=== PATIENT | male | born 1960 | race Hispanic/Latino ===

== ENCOUNTER 2019-08-31 17:54 | Emergency (ER) | payer OTHER ==
[2019-08-31 19:24] LABS: Absolute Lymphocytes (CBC) 2.1 K/uL (0.7-4.9); Basophils % 0.4 % (0-1.3); Hematocrit 39.7 % (39.6-49.0); RBC Red Blood Cell Count 4.47 M/uL (4.33-5.43)
--- NOTE | 2019-08-31 19:31 | RAD REPORT ---
EXAM DESCRIPTION: RAD - Knee Left 3 View - 08/31/2019 7:14 pm CLINICAL HISTORY: pain, swelling COMPARISON: No comparisons FINDINGS: Tricompartmental osteoarthritis is seen, most severe in the lateral compartment. No fractu re is evident. Small suprapatellar joint effusion is evident. Soft tissue edema is seen about the kne e.
[2019-08-31 19:40] LABS: Bilirubin Total 0.8 mg/dL (0.2-1.0); Potassium 4.1 mmol/L (3.5-5.1); Protein, Total 7.8 g/dL (6.4-8.2); Uric Acid 4.5 mg/dL (3.5-7.2)
[2019-08-31] MEDS ORDERED: LIDOCAINE 1% MPF 5 ML VIAL ONE (20:26)
[2019-08-31 22:06] LABS: Appearance SLT. TURBID (CLEAR); Body Fluid WBC 55 /mm^3; Color of fluid Yellow (COLORLESS)
[2019-08-31 22:07] LABS: Body Fluid Source SYNOVIAL
--- NOTE | 2019-08-31 23:23 | EDPHYS ---
Physician Documentation [facility] Name: Juarez Almonte Jr Age: 59 yrs Sex: Male : 1960 Arrival Date: 08/31/2019 Time: 17:56 Bed 6 Private MD: Myke Keller ED Physician Andrey Oconnell HPI: 08/30 18:42 This 59 yrs old Male presents to ER via Wheelchair with complaints of Leg jmm Swelling, Knee Pain. 18:42 The patient presents with pain. Onset: The symptoms/episode began/occurred gradually, 1 jmm week(s) ago. Modifying factors: The symptoms are alleviated by extending knee. Associated signs and symptoms: Pertinent positives: swelling, warmth, Pertinent negatives fever. This is a 59 year old male with a history of DM that presents to the ED with complaints of left knee pain. Patient states the symptoms began when he awoke 1 week ago. Pain is localized mainly to the right anterior medial region. Sent by PCP due to concerns for joint infection. . Historical: - Allergies: 18:24 No Known Allergies; ll1 - PSHx: 18:24 None; ll1 - Immunization history:: Adult Immunizations up to date. - Social history:: Patient/guardian denies using alcohol, street drugs, tobacco products. ROS: 18:42 Constitutional: Negative for fever, chills, and weight loss, Cardiovascular: Negative jmm for chest pain, palpitations, and edema, Respiratory: Negative for shortness of breath, cough, wheezing, and pleuritic chest pain. 18:42 MS/extremity: Positive for erythema, pain. 18:42 All other systems are negative. Exam: 18:42 Constitutional: This is a well developed, well nourished patient who is awake, alert, jmm and in no acute distress. Head/Face: atraumatic. Eyes: EOMI, no conjunctival erythema appreciated ENT: Moist Mucus Membranes Neck: Trachea midline, Supple Chest/axilla: Normal chest wall appearance and motion. Cardiovascular: Regular rate and rhythm. No edema appreciated Respiratory: Normal respirations, no respiratory distress appreciated Abdomen/GI: Non distended, soft Back: Normal ROM 18:42 Musculoskeletal/extremity: Painful flexion noted to the left knee, pain relieved on extension. 18:42 Skin: erythema noted to the left ant knee, . 18:42 Neuro: Orientation: is normal, Mentation: is normal, Memory: is normal, Cranial nerves: 18:42 Psych: Behavior/mood is pleasant, cooperative. Vital Signs: 18:22 BP 127 / 76; Pulse 84; Resp 18; Temp 99.4; Pulse Ox 97% ; Pain 9/10; ll1 20:50 BP 131 / 82; Pulse 78; Resp 16; Pulse Ox 100% on R/A; jb4 22:00 BP 120 / 74; Pulse 75; Resp 16; Pulse Ox 95% on R/A; jb4 23:00 BP 124 / 74; Pulse 75; Resp 16; Pulse Ox 98% on R/A; jb4 Procedures: 20:45 Joint Treatment: Aspiration of left knee using 22g needle. Removed yellow fluid, bloody rn fluid, Specimen sent to lab. Dressed with band aid, Patient tolerated well. MDM: 18:37 Patient medically screened. [facility] 23:20 Data reviewed: vital signs, nurses notes. Counseling: I had a detailed discussion with mansoor the patient and/or guardian regarding: the historical points, exam findings, and any diagnostic results supporting the discharge/admit diagnosis, lab results, radiology results, the need for outpatient follow up, to return to the emergency department if symptoms worsen or persist or if there are any questions or concerns that arise at home. ED course: Patient is alert and non toxic in appearance in the ED. Aspirate fluid unremarkable. Patient most likely has cellulitis. Patient is advised to follow up with pcp and otherwise given strict return precautions Patient understood and agrees with the plan of care. . 08/30 18:42 Order name: CBC with Diff; Complete Time: 19:48 [facility] 08/30 18:42 Order name: CMP; Complete Time: 19:40 [facility] 08/30 18:42 Order name: ESR; Complete Time: 19:48 [facility] 08/30 18:42 Order name: Uric Acid; Complete Time: 19:40 [facility] 08/30 20:44 Order name: Fluid Cell Count,Body; Complete Time: 22:16 08/30 20:44 Order name: Fluid Crystals; Complete Time: 21:21 08/30 18:42 Order name: Knee Left 3 View XRAY; Complete Time: 19:36 [facility] 08/30 18:42 Order name: Saline Lock; Complete Time: 19:30 [facility] 08/30 20:14 Order name: [facility]. Order: Consent for aspiration of the Knee; Complete Time: 20:59 08/30 20:44 Order name: Body Fluid Culture rn Administered Medications: 23:25 Drug: Bactrim (160 mg-800 mg (DS) 1 tablet Route: PO; jb4 23:33 Follow up: Response: No adverse reaction jb4 Disposition: 08/31 17:36 Co-signature as Attending Physician, Andrey Oconnell MD I agree with the assessment and kdr plan of care. Disposition: 08/31/19 23:22 Discharged to Home. Impression: Cellulitis of left lower limb. - Condition is Stable. - Discharge Instructions: Cellulitis, Adult. - Prescriptions for Bactrim DS 800- 160 mg Oral Tablet - take 1 tablet by ORAL route every 12 hours for 10 days; 20 tablet. - Medication Reconciliation Form, Thank You Letter, Antibiotic Education, Prescription Opioid Use form. - Work release form (08/31/19 23:39). jb4 - Follow up: Myke Keller MD; When: 2 - 3 days; Reason: Recheck today's complaints, Continuance of care, Re-evaluation by your physician. Signatures: Dispatcher [employer] EDMS Abhi Walsh RN RN Andrey Oconnell MD MD kdr Mickail, Joel, PA PA [facility] Michael Taveras MD MD rn Bryson, James, RN RN jb4 Akash Richardson RN RN ll1 Corrections: (The following items were deleted from the chart) 08/30 20:59 20:14 [facility]. Order ordered. [facility] jb 23:33 23:22 08/31/2019 23:22 Discharged to Home. Impression: Cellulitis of left lower limb. jb4 Condition is Stable. Forms are Medication Reconciliation Form, Thank You Letter, Antibiotic Education, Prescription Opioid Use. Follow up: Myke Keller; When: 2 - 3 days; Reason: Recheck today's complaints, Continuance of care, Re-evaluation by your physician. [facility]
--- NOTE | 2019-08-31 23:23 | ER ---
Nurse's Notes [facility] Name: Juarez Almonte Jr Age: 59 yrs Sex: Male : 1960 Arrival Date: 08/31/2019 Time: 17:56 Bed 6 Private MD: Myke Keller Diagnosis: Cellulitis of left lower limb Presentation: 08/30 18:22 Chief complaint: Patient states: Left knee pain, redness, swelling for 2 days getting ll1 worse each day. Coronavirus screen: Proceed with normal triage. Patient denies a cough. Patient denies shortness of breath or difficulty breathing. Patient denies measured and/or subjective temperature greater than 100.4F prior to today's visit. Patient denies travel on a cruise ship or to a country the [facility] currently lists as an affected area. Patient denies contact with known and/or suspected case of COVID-19. Ebola Screen: Patient denies travel to an Ebola-affected area in the 21 days before illness onset. Initial Sepsis Screen: Does the patient meet any 2 criteria? No. Patient's initial sepsis screen is negative. Does the patient have a suspected source of infection? No. Patient's initial sepsis screen is negative. Initial Sepsis Screen: Does the patient have a suspected source of infection? Yes: Bone or joint infection. Risk Assessment: Do you want to hurt yourself or someone else? Patient reports no desire to harm self or others. Onset of symptoms was August 30, 2019. 18:22 Method Of Arrival: Wheelchair ll1 18:22 Acuity: DAMION 3 ll1 Historical: - Allergies: 18:24 No Known Allergies; ll1 - PSHx: 18:24 None; ll1 - Immunization history:: Adult Immunizations up to date. - Social history:: Patient/guardian denies using alcohol, street drugs, tobacco products. Screenin:00 Abuse screen: Denies threats or abuse. Denies injuries from another. Nutritional ph screening: No deficits noted. Tuberculosis screening: No symptoms or risk factors identified. Fall Risk None identified. Assessment: 19:05 General: Appears in no apparent distress. comfortable, Behavior is calm, cooperative, jb4 appropriate for age. Pain: Complains of pain in left knee Pain does not radiate. Pain currently is 5 out of 10 on a pain scale. Quality of pain is described as pressure, Pain began 2-3 days ago. Is continuous. Neuro: Level of Consciousness is awake, alert, obeys commands, Oriented to person, place, time, situation. Cardiovascular: Patient's skin is warm and dry. Respiratory: Airway is patent Respiratory effort is even, unlabored, Respiratory pattern is regular, symmetrical. GI: No signs and/or symptoms were reported involving the gastrointestinal system. : No signs and/or symptoms were reported regarding the genitourinary system. EENT: No signs and/or symptoms were reported regarding the EENT system. Derm: Skin is intact, Skin is pink, warm \T\ dry. Musculoskeletal: Circulation, motion, and sensation intact. Range of motion: limited in left knee Swelling present in left knee. 20:00 Reassessment: Patient appears in no apparent distress at this time. Patient and/or jb4 family updated on plan of care and expected duration. Pain level reassessed. Patient is alert, oriented x 3, equal unlabored respirations, skin warm/dry/pink. 20:46 Reassessment: Patient appears in no apparent distress at this time. Patient and/or jb4 family updated on plan of care and expected duration. Pain level reassessed. Patient is alert, oriented x 3, equal unlabored respirations, skin warm/dry/pink. 22:06 Reassessment: Patient appears in no apparent distress at this time. Patient and/or jb4 family updated on plan of care and expected duration. Pain level reassessed. Patient is alert, oriented x 3, equal unlabored respirations, skin warm/dry/pink. 23:00 Reassessment: Patient appears in no apparent distress at this time. Patient and/or jb4 family updated on plan of care and expected duration. Pain level reassessed. Patient is alert, oriented x 3, equal unlabored respirations, skin warm/dry/pink. Vital Signs: 18:22 BP 127 / 76; Pulse 84; Resp 18; Temp 99.4; Pulse Ox 97% ; Pain 9/10; ll1 20:50 BP 131 / 82; Pulse 78; Resp 16; Pulse Ox 100% on R/A; jb4 22:00 BP 120 / 74; Pulse 75; Resp 16; Pulse Ox 95% on R/A; jb4 23:00 BP 124 / 74; Pulse 75; Resp 16; Pulse Ox 98% on R/A; jb4 ED Course: 17:56 Patient arrived in ED. am2 17:57 Myke Keller MD is Private Physician. am2 18:16 Tyree Miller PA is PHCP. m 18:16 Andrey Oconnell MD is Attending Physician. [facility] 18:23 Triage completed. ll1 18:24 Arm band placed on Patient placed in an exam room, on a stretcher. ll1 19:00 Patient has correct armband on for positive identification. Bed in low position. Call ph light in reach. Side rails up X 1. Pulse ox on. NIBP on. Door closed. Noise minimized. Warm blanket given. 19:11 Zeke Frey, RN is Primary Nurse. jb4 19:14 Knee Left 3 View XRAY In Process Unspecified. EDMS 19:15 Inserted saline lock: 20 gauge in right forearm, using aseptic technique. tt3 23:22 Myke Keller MD is Referral Physician. [facility] 23:33 No provider procedures requiring assistance completed. IV discontinued, intact, jb4 bleeding controlled, No redness/swelling at site. Pressure dressing applied. Administered Medications: 23:25 Drug: Bactrim (160 mg-800 mg (DS) 1 tablet Route: PO; jb4 23:33 Follow up: Response: No adverse reaction jb4 Outcome: 23:22 Discharge ordered by . [facility] 23:33 Discharged to home ambulatory. jb4 23:33 Condition: stable 23:33 Discharge instructions given to patient, Instructed on discharge instructions, follow up and referral plans. medication usage, Demonstrated understanding of instructions, follow-up care, medications, Prescriptions given X 1. 23:33 Patient left the ED. jb4 Signatures: Dispatcher [employer] EDMS Tyree Miller PA PA [facility] Tiffany Cabrera RN RN Zeke Frey, RN RN jb4 Mey Malik am2 Akash Richardson, RN RN ll1 Junior Ball tt3
[2019-08-31] MEDS ORDERED: SMZ./TMP. 800/160 MG TABLET ONE (23:30)
[2019-08-31 23:40] VITALS: TEMP 99.4
[2019-08-31 23:44] VITALS: BP 124/74; O2SAT 98
== END 2019-08-31 23:33 | disposition home or self-care (01) ==
LOC: ER 17:54
PROC: 0S9D3ZX Drainage of Left Knee Joint, Percutaneous Approach, Diagnostic (ICD-10-PCS; principal; 2019-08-31)
DX: L03.116 Cellulitis of left lower limb (principal)
CPT/HCPCS: 36415; 80053; 84550; 85025; 85652; 87070; 89050; 89060; 99284

== ENCOUNTER 2020-09-24 11:33 | Inpatient (IN) | payer OTHER ==
--- NOTE | 2020-09-24 12:56 | RAD REPORT ---
EXAM DESCRIPTION: RAD - Chest Single View - 09/24/2020 12:47 pm CLINICAL HISTORY: Cough COMPARISON: None. TECHNIQUE: AP portable chest image was obtained . FINDINGS: Lungs are clear. Heart and vasculature are normal. No measurable pleural effusion and no p neumothorax. No gross bony abnormality seen. IMPRESSION: No acute cardiopulmonary process.
[2020-09-24] MEDS ORDERED: NA CHLORIDE 0.9% 1,000 ML ONE ×2 (13:06→16:43)
[2020-09-24 13:09] LABS: Absolute Lymphocytes (CBC) 1.8 K/uL (0.7-4.9); Basophils % 0.3 % (0-1.3); Hematocrit 39.3 % (39.6-49.0); Lymphocytes % 11.7 % (15.3-44.8); RBC Red Blood Cell Count 4.46 M/uL (4.33-5.43)
[2020-09-24 13:11] LABS: Protime INR 1.15
[2020-09-24 13:27] LABS: ALT/SGPT 56 U/L (12-78); AST/SGOT 23 U/L (15-37); Albumin 3.6 g/dL (3.4-5.0); Alkaline Phosphatase 89 U/L (45-117); BUN Blood Urea Nitrogen 17 mg/dL (7-18); Bicarbonate 24 mmol/L (21-32); Bilirubin Direct 0.5 mg/dL (0-0.2); Bilirubin Total 1.4 mg/dL (0.2-1.0); Glucose Level 217 mg/dL (74-106); Lipase 124 U/L (73-393); Magnesium 2.2 mg/dL (1.8-2.4); NT PRO-BNP 129 pg/mL (<125); Potassium 4.2 mmol/L (3.5-5.1); Protein, Total 7.6 g/dL (6.4-8.2); Sodium Level 127 mmol/L (136-145); Troponin (Emerg Dept Use Only) < 0.02 ng/mL (0.0-0.045)
--- NOTE | 2020-09-24 13:56 | RAD REPORT ---
EXAM DESCRIPTION: CT - Abdomen Pelvis Wo Contrast - 09/24/2020 1:44 pm CLINICAL HISTORY: Abd pain;Flank pain COMPARISON: No comparisons TECHNIQUE: Axial [address] imaging of the abdomen and pelvis was performed without IV contrast. No IV contrast was given because of allergy, abnormal renal function, patient refusal or physician re quest. No oral contrast administered. All CT scans are performed using dose optimization technique as appropriate and may include automated exposure control or mA/KV adjustment according to patient size. FINDINGS: No suspicious findings in the lung bases. The liver, spleen and pancreas show no focal findings on non-contrast imaging. There is pronounced fa tty infiltration of the liver with sparing in the caudate lobe and gallbladder fossa region. No gallb ladder or biliary tree abnormality. No hydronephrosis or suspicious renal mass. No significant adrenal finding. Isodense renal masses an d pyelonephritis cannot be excluded in the absence of IV contrast. Urinary bladder is fully contracte d which accentuates the wall thickness. No accurate assessment can be made of cystitis. No stone or a symmetric wall thickening identified. Prostate gland is normal size. No dilated bowel loops or bowel wall thickening. Appendix is normal. No free air, free fluid or infla mmatory stranding. No mass or bulky lymphadenopathy. No significant hernia findings. No suspicious bony findings. IMPRESSION: Non-contrast enhanced CT abdomen and pelvis imaging show no significant or suspicious fi nding. Nonacute findings detailed in the body of the report. Full assessment is limited is the absence of IV contrast.
[2020-09-24 16:10] LABS: Urine Blood 3+ (Negative); Urine Glucose Trace (Negative); Urine Protein 3+ (Negative); Urine Specific Gravity >=1.030 (1.005-1.030)
--- NOTE | 2020-09-24 16:13 | ER ---
Nurse's Notes [facility] Name: Juarez Almonte Jr Age: 60 yrs Sex: Male : 1960 Arrival Date: 09/24/2020 Time: 11:36 Bed 23 Private MD: Diagnosis: Dysuria;UTI/ Urinary tract infection, site not specified;Hematuria, unspecified;Acute kidney failure, unspecified;Acute prostatitis;Type 2 diabetes mellitus with hyperglycemia;Essential (primary) hypertension;Elevated white blood cell count, unspecified Presentation: 09/24 11:38 Chief complaint: Patient states: hematuria since Wednesday and dysuria. Coronavirus sv screen: Client denies travel out of the [place] in the last 14 days. At this time, the client does not indicate any symptoms associated with coronavirus-19. Ebola Screen: No symptoms or risks identified at this time. Initial Sepsis Screen: Does the patient meet any 2 criteria? HR > 90 bpm. No. Patient's initial sepsis screen is negative. Does the patient have a suspected source of infection? No. Patient's initial sepsis screen is negative. Risk Assessment: Do you want to hurt yourself or someone else? Patient reports no desire to harm self or others. Onset of symptoms was September 22, 2020. 11:38 Method Of Arrival: Ambulatory sv 11:38 Acuity: DAMION 3 sv Triage Assessment: 11:40 General: Appears in no apparent distress. comfortable, Behavior is calm, cooperative, sv appropriate for age. Pain: Denies pain. Neuro: Level of Consciousness is awake, alert, obeys commands, Oriented to person, place, time, situation, Gait is steady. Historical: - Allergies: 11:40 No Known Allergies; sv - PMHx: 11:40 Diabetes mellitus; sv - PSHx: 11:40 None; sv - Immunization history:: Client reports receiving the 2nd dose of the Covid vaccine, Client reports receiving the 1st dose of the Covid vaccine. - Social history:: Smoking status: Patient denies any tobacco usage or history of. - Family history:: not pertinent. Screenin:36 Abuse screen: Denies threats or abuse. Nutritional screening: No deficits noted. vg1 Tuberculosis screening: No symptoms or risk factors identified. Fall Risk No fall in past 12 months (0 pts). No secondary diagnosis (0 pts). IV access (20 points). Ambulatory Aid- None/Bed Rest/Nurse Assist (0 pts). Gait- Normal/Bed Rest/Wheelchair (0 pts) Mental Status- Oriented to own ability (0 pts). Total Arceo Fall Scale indicates No Risk (0-24 pts). Assessment: 12:14 General: Appears in no apparent distress. comfortable, Behavior is calm, cooperative. vg1 Pain: Complains of pain in groin Pain currently is 2 out of 10 on a pain scale. at worst was 10 out of 10 on a pain scale. Pain began 2-3 days ago. Neuro: Level of Consciousness is awake, alert, obeys commands, Oriented to person, place, time, situation. Cardiovascular: Patient's skin is warm and dry. Respiratory: Airway is patent Respiratory effort is even, unlabored. GI: Abdomen is round distended, Patient currently denies nausea, vomiting. : Urine is blood tinged, Reports burning with urination, inability to void, pain. EENT: No signs and/or symptoms were reported regarding the EENT system. Derm: Skin is intact, is healthy with good turgor. Musculoskeletal: Circulation, motion, and sensation intact. 13:53 Reassessment: Patient appears in no apparent distress at this time. No changes from vg1 previously documented assessment. Patient and/or family updated on plan of care and expected duration. Pain level reassessed. Patient is alert, oriented x 3, equal unlabored respirations, skin warm/dry/pink. 14:57 Reassessment: Patient appears in no apparent distress at this time. Patient and/or vg1 family updated on plan of care and expected duration. Pain level reassessed. Patient is alert, oriented x 3, equal unlabored respirations, skin warm/dry/pink. Patient denies pain at this time. 16:30 Reassessment: Patient appears in no apparent distress at this time. Patient and/or vg1 family updated on plan of care and expected duration. Pain level reassessed. Patient is alert, oriented x 3, equal unlabored respirations, skin warm/dry/pink. Patient denies pain at this time. Patient states feeling better. 17:32 Reassessment: Attempted to call report. vg1 Vital Signs: 11:38 BP 118 / 83; Pulse 98; Resp 18; Temp 98.9; Pulse Ox 100% ; Weight 108.86 kg; Height 5 sv ft. 8 in. (172.72 cm); Pain 0/10; 12:15 BP 102 / 68; Pulse 86; Resp 16; Pulse Ox 98% on R/A; vg1 13:53 BP 114 / 78; Pulse 85; Resp 22; Pulse Ox 97% on R/A; vg1 14:00 BP 114 / 73; Pulse 85; Resp 24; Pulse Ox 98% on R/A; vg1 15:00 BP 111 / 81; Pulse 96; Resp 22; Pulse Ox 96% on R/A; vg1 16:00 BP 111 / 73; Pulse 83; Resp 24; Pulse Ox 100% on R/A; vg1 11:38 Body Mass Index 36.49 (108.86 kg, 172.72 cm) sv ED Course: 11:36 Patient arrived in ED. wm 11:40 Triage completed. sv 11:40 Arm band placed on. sv 12:20 Efrem Khan MD is Attending Physician. elise 12:31 Cammie Leblanc RN is Primary Nurse. vg1 12:36 Patient has correct armband on for positive identification. Bed in low position. Call vg1 light in reach. Side rails up X 1. 12:41 Bladder scan completed. 22 ml. vg1 12:47 XRAY Chest (1 view) In Process Unspecified. EDMS 12:58 Initial lab(s) drawn, by nm, sent to lab. Inserted saline lock: 20 gauge in right vg1 antecubital area, using aseptic technique. Blood collected. 13:44 Abdomen In Process Unspecified. EDMS 16:11 Angel Cruz DO is Hospitalizing Provider. elise 17:27 No provider procedures requiring assistance completed. Patient admitted, IV remains in vg1 place. Administered Medications: 12:56 Drug: NS 0.9% 1000 ml Route: IV; Rate: 125 ml/hr; Site: right antecubital; vg1 16:13 CANCELLED (Duplicate Order): Rocephin (cefTRIAXone) 1 grams IV at per protocol once; elise Given slow IV push per pharmacy instructions 16:24 Drug: Flomax (tamsulosin) 0.4 mg Route: PO; vg1 17:30 Follow up: Response: No adverse reaction vg1 16:24 Drug: LevOfloxacin 500 mg Route: PO; vg1 17:30 Follow up: Response: No adverse reaction vg1 16:26 Drug: NS 0.9% 1000 ml Route: IV; Rate: 1 bolus; Site: right antecubital; vg1 17:31 Follow up: IV Status: Completed infusion; IV Intake: 1000ml vg1 16:27 Drug: Rocephin (cefTRIAXone) 2 grams Route: IV; Rate: per protocol; Site: right vg1 antecubital; 17:30 Follow up: Response: No adverse reaction; IV Status: Completed infusion vg1 Intake: 17:31 IV: 1000ml; Total: 1000ml. vg1 Outcome: 16:12 Decision to Hospitalize by Provider. elise 17:42 Admitted to Tele accompanied by tech, room 216, with chart, Report called to ROOSEVELT Varela vg1 17:42 Condition: stable 17:42 Instructed on the need for admit. 18:22 Patient left the ED. vg1 Signatures: Dispatcher [employer] Aleida Valles RN RN sv Anderson, Corey, MD MD cha Garcia, Victoria, RN RN vg Kathy Ordonez Corrections: (The following items were deleted from the chart) 12:57 12:14 GI: Patient currently denies nausea, vomiting, vg1 vg1 17:32 17:27 Admitted to Tele accompanied by tech, room 216, with chart, vg1 vg1 17:32 17:27 Condition: stable vg1 vg1 17:32 17:27 Instructed on the need for admit, vg1 vg1
--- NOTE | 2020-09-24 16:13 | EDPHYS ---
Physician Documentation [facility] Name: Juarez Almonte Jr Age: 60 yrs Sex: Male : 1960 Arrival Date: 09/24/2020 Time: 11:36 Bed 23 Private MD: APRIL Physician Efrem Khan HPI: 09/24 16:08 This 60 yrs old Male presents to ER via Ambulatory with complaints of Pain elise With Urination - Blood. 16:08 The patient presents with abdominal pain in the lower abdomen. Onset: The elise symptoms/episode began/occurred 3 day(s) ago. The patient presents with urinary symptoms, dysuria, urinary frequency, retention. Onset: The symptoms/episode began/occurred 3 day(s) ago. Modifying factors: The symptoms are alleviated by nothing, the symptoms are aggravated by nothing. Associated signs and symptoms: The patient has no apparent associated signs or symptoms. The symptoms do not radiate. Associated signs and symptoms: Pertinent positives: dysuria. Modifying factors: The symptoms are alleviated by nothing, the symptoms are aggravated by nothing. Severity of pain: At its worst the pain was moderate in the emergency department the pain is unchanged. Historical: - Allergies: 11:40 No Known Allergies; sv - PMHx: 11:40 Diabetes mellitus; sv - PSHx: 11:40 None; sv - Immunization history:: Client reports receiving the 2nd dose of the Covid vaccine, Client reports receiving the 1st dose of the Covid vaccine. - Social history:: Smoking status: Patient denies any tobacco usage or history of. - Family history:: not pertinent. ROS: 16:08 Constitutional: Negative for fever, chills, and weight loss, Eyes: Negative for injury, elise pain, redness, and discharge, ENT: Negative for injury, pain, and discharge, Neck: Negative for injury, pain, and swelling, Cardiovascular: Negative for chest pain, palpitations, and edema, Respiratory: Negative for shortness of breath, cough, wheezing, and pleuritic chest pain, Back: Negative for injury and pain, MS/Extremity: Negative for injury and deformity, Skin: Negative for injury, rash, and discoloration, Neuro: Negative for headache, weakness, numbness, tingling, and seizure, Psych: Negative for depression, anxiety, suicide ideation, homicidal ideation, and hallucinations, Allergy/Immunology: Negative for hives, rash, and allergies, Endocrine: Negative for neck swelling, polydipsia, polyuria, polyphagia, and marked weight changes, Hematologic/Lymphatic: Negative for swollen nodes, abnormal bleeding, and unusual bruising. 16:08 Abdomen/GI: Positive for abdominal pain, of the suprapubic area. 16:08 Back: Negative for decreased range of motion, pain at rest, pain with movement. 16:08 : Positive for urinary symptoms, urinary frequency, small amounts, hematuria, burning with urination, difficulty urinating. 16:08 MS/extremity: Negative for acute changes. Exam: 16:08 Constitutional: This is a well developed, well nourished patient who is awake, alert, elise and in no acute distress. Head/Face: Normocephalic, atraumatic. Eyes: Pupils equal round and reactive to light, extra-ocular motions intact. Lids and lashes normal. Conjunctiva and sclera are non-icteric and not injected. Cornea within normal limits. Periorbital areas with no swelling, redness, or edema. ENT: Nares patent. No nasal discharge, no septal abnormalities noted. Tympanic membranes are normal and external auditory canals are clear. Oropharynx with no redness, swelling, or masses, exudates, or evidence of obstruction, uvula midline. Mucous membranes moist. Neck: Trachea midline, no thyromegaly or masses palpated, and no cervical lymphadenopathy. Supple, full range of motion without nuchal rigidity, or vertebral point tenderness. No Meningismus. Chest/axilla: Normal chest wall appearance and motion. Nontender with no deformity. No lesions are appreciated. Cardiovascular: Regular rate and rhythm with a normal S1 and S2. No gallops, murmurs, or rubs. Normal PMI, no JVD. No pulse deficits. Respiratory: Lungs have equal breath sounds bilaterally, clear to auscultation and percussion. No rales, rhonchi or wheezes noted. No increased work of breathing, no retractions or nasal flaring. Abdomen/GI: Soft, non-tender, with normal bowel sounds. No distension or tympany. No guarding or rebound. No evidence of tenderness throughout. Back: No spinal tenderness. No costovertebral tenderness. Full range of motion. Male : Normal genitalia with no discharge or lesions. Skin: Warm, dry with normal turgor. Normal color with no rashes, no lesions, and no evidence of cellulitis. MS/ Extremity: Pulses equal, no cyanosis. Neurovascular intact. Full, normal range of motion. Neuro: Awake and alert, GCS 15, oriented to person, place, time, and situation. Cranial nerves II-XII grossly intact. Motor strength 5/5 in all extremities. Sensory grossly intact. Cerebellar exam normal. Normal gait. Psych: Awake, alert, with orientation to person, place and time. Behavior, mood, and affect are within normal limits. Vital Signs: 11:38 BP 118 / 83; Pulse 98; Resp 18; Temp 98.9; Pulse Ox 100% ; Weight 108.86 kg; Height 5 sv ft. 8 in. (172.72 cm); Pain 0/10; 12:15 BP 102 / 68; Pulse 86; Resp 16; Pulse Ox 98% on R/A; vg1 13:53 BP 114 / 78; Pulse 85; Resp 22; Pulse Ox 97% on R/A; vg1 14:00 BP 114 / 73; Pulse 85; Resp 24; Pulse Ox 98% on R/A; vg1 15:00 BP 111 / 81; Pulse 96; Resp 22; Pulse Ox 96% on R/A; vg1 16:00 BP 111 / 73; Pulse 83; Resp 24; Pulse Ox 100% on R/A; vg1 11:38 Body Mass Index 36.49 (108.86 kg, 172.72 cm) sv MDM: 12:20 Patient medically screened. elise 16:14 Differential diagnosis: nonspecific abdominal pain, UTI, urinary retention, elise prostatitis, cholecystitis, gastritis, gastroesophageal reflux disease, non-specific abd pain, pancreatitis, Prostatitis, urinary tract infection. Data reviewed: vital signs, nurses notes, lab test result(s), EKG, radiologic studies, CT scan, plain films. Data interpreted: court monitor: rate is 85 beats/min, rhythm is regular, Pulse oximetry: on room air is 98 %. Test interpretation: by ED physician or midlevel provider: ECG, plain radiologic studies. Counseling: I had a detailed discussion with the patient and/or guardian regarding: the historical points, exam findings, and any diagnostic results supporting the discharge/admit diagnosis, lab results, the need for further work-up and treatment in the hospital. 09/24 12:21 Order name: Basic Metabolic Panel; Complete Time: 15:53 [facility] 09/24 12:21 Order name: CBC with Diff; Complete Time: 15:53 [facility] 09/24 12:21 Order name: LFT's; Complete Time: 15:53 [facility] 09/24 12:21 Order name: Magnesium; Complete Time: 15:53 [facility] 09/24 12:21 Order name: NT PRO-BNP; Complete Time: 15:53 [facility] 09/24 12:21 Order name: PT-INR; Complete Time: 15:53 [facility] 09/24 12:21 Order name: Troponin (emerg Dept Use Only); Complete Time: 15:53 [facility] 09/24 12:21 Order name: XRAY Chest (1 view); Complete Time: 15:53 [facility] 09/24 12:21 Order name: Lipase; Complete Time: 15:53 [facility] 09/24 12:21 Order name: Urine Culture [facility] 09/24 13:32 Order name: Abdomen ; Complete Time: 15:53 [facility] 09/24 16:09 Order name: Urine Dipstick-Ancillary; Complete Time: 16:13 [facility] [place] 09/24 12:21 Order name: EKG; Complete Time: 12:22 [facility] 09/24 12:21 Order name: Cardiac monitoring; Complete Time: 12:56 [facility] 09/24 12:21 Order name: EKG - Nurse/Tech; Complete Time: 12:56 [facility] 09/24 12:21 Order name: IV Saline Lock; Complete Time: 12:56 [facility] 09/24 12:21 Order name: Labs collected and sent; Complete Time: 12:56 [facility] 09/24 12:21 Order name: O2 Per Protocol; Complete Time: 12:41 [facility] 09/24 12:21 Order name: O2 Sat Monitoring; Complete Time: 12:41 [facility] 09/24 12:21 Order name: Urine Dipstick-Ancillary (obtain specimen); Complete Time: 12:56 [facility] Administered Medications: 12:56 Drug: NS 0.9% 1000 ml Route: IV; Rate: 125 ml/hr; Site: right antecubital; vg1 16:13 CANCELLED (Duplicate Order): Rocephin (cefTRIAXone) 1 grams IV at per protocol once; elise Given slow IV push per pharmacy instructions 16:24 Drug: Flomax (tamsulosin) 0.4 mg Route: PO; vg1 17:30 Follow up: Response: No adverse reaction vg1 16:24 Drug: LevOfloxacin 500 mg Route: PO; vg1 17:30 Follow up: Response: No adverse reaction vg1 16:26 Drug: NS 0.9% 1000 ml Route: IV; Rate: 1 bolus; Site: right antecubital; vg1 17:31 Follow up: IV Status: Completed infusion; IV Intake: 1000ml vg1 16:27 Drug: Rocephin (cefTRIAXone) 2 grams Route: IV; Rate: per protocol; Site: right vg1 antecubital; 17:30 Follow up: Response: No adverse reaction; IV Status: Completed infusion vg1 Disposition Summary: 09/24/20 16:12 Hospitalization Ordered Provider: Angel Crzu cha Condition: Stable elise Problem: new elise Symptoms: have improved elise Bed/Room Type: Standard elise Hospitalization Status: Inpatient Admission(09/24/20 16:12) elise Location: Telemetry/MedSurg (Inpatient)(09/24/20 16:12) elise Room Assignment: [facility](09/24/20 17:14) dw Diagnosis - Dysuria elies - UTI/ Urinary tract infection, site not specified elise - Hematuria, unspecified elise - Acute kidney failure, unspecified elise - Acute prostatitis elise - Type 2 diabetes mellitus with hyperglycemia elise - Essential (primary) hypertension elise - Elevated white blood cell count, unspecified elise Forms: - Medication Reconciliation Form elise - SBAR form elise Signatures: Dispatcher [employer] Aleida Valles RN RN sv Woody, Diana, RN RN dw Anderson, Corey, MD MD cha Garcia, Victoria RN RN vg1 Corrections: (The following items were deleted from the chart) 13:32 12:23 Abdomen Pelvis W Con+CT.RAD.BRZ ordered. EDMS EDMS 16:12 16:12 Observation elise elise 16:12 16:12 Telemetry/MedSurg (observation) elise elise 16:12 16:12 elise elise 16:13 16:07 Rocephin (cefTRIAXone) 1 grams IV at per protocol once; Given slow IV push per elise pharmacy instructions ordered. elise 17:14 16:12 elise dw
[2020-09-24] MEDS ORDERED: levoFLOXacin 500 MG TAB ONE (16:41)
[2020-09-24] MEDS ORDERED: CEFTRIAXONE/SWI 1gm 1 GM/10 ML SYR ONE ×2 (16:41→18:12)
[2020-09-24] MEDS ORDERED: TAMSULOSIN 0.4 MG SR CAP ONE (16:41)
--- NOTE | 2020-09-24 16:57 | P.HP ---
Certification for Inpatient Patient admitted to: Inpatient With expected LOS: >2 Midnights Patient will require the following post-hospital care: None Practitioner: I am a practitioner with admitting privileges, knowledge of patient current condition, hospital course, and medical plan of care. Services: Services provided to patient in accordance with Admission requirements found in Title 42 Section 412.3 of the Code of Federal Regulations Patient History Date of Service: 09/24/20 Primary Care Provider: Dr. France Reason for admission: Pelvic pain, dysuria History of Present Illness: 60-year-old male with history of diabetes mellitus type 2 insulin- dependent, hyperlipidemia, hypertension. Patient presented with pelvic pain, dysuria and poor oral intake. Patient has been working outside. Patient denied any significant fever. Patient reported some difficulty with urinating. Patient reports no history of UTI in the past. There was some question of mild hematuria. Patient came to the ER for further evaluation. In the ER patient was evaluated. UTI identified. White count 15.4, hemoglobin 13.6. Sodium 127, potassium 4.2. BUN of 17, creatinine 1.74 with a GFR 40. Glucose of 217. CT scan unremarkable. Chest x-ray unremarkable. Patient started on IV antibiotic therapy. Patient given IV fluids. Patient admitted for further evaluation and treatment. Home medications list reviewed: Yes - Past Medical/Surgical History Diabetic: Yes -: Diabetes mellitus type 2 insulin-dependent -: Hypertension -: Hyperlipidemia Past Surgical History: Patient denies surgical history Psychosocial/ Personal History: Patient is - Family History Family History: Reviewed- Non-Contributory - Social History Smoking Status: Never smoker Alcohol use: No CD- Drugs: No Caffeine use: No Place of Residence: Home Review of Systems General: Weakness, As per HPI Eyes: Unremarkable ENT: Unremarkable Respiratory: Unremarkable Cardiovascular: Unremarkable Gastrointestinal: Abdominal Pain, As per HPI Genitourinary: Dysuria, Frequency, Urgency, As per HPI Musculoskeletal: Unremarkable Integumentary: Unremarkable Neurological: Unremarkable Lymphatics: Unremarkable Physical Examination - Physical Exam General: Alert, In no apparent distress, Oriented x3, Cooperative HEENT: Atraumatic, Normocephalic, Other (Dry mucous membranes) Neck: Supple Respiratory: Clear to auscultation bilaterally, Normal air movement Cardiovascular: Normal pulses, Regular rate/rhythm Gastrointestinal: Normal bowel sounds, Soft and benign, Non-distended, No masses, No rebound, No guarding, Tenderness (Minimal tenderness to the pelvic bladder region) Musculoskeletal: No erythema, No tenderness, No warmth Integumentary: No tenderness/swelling, No erythema, No warmth, No cyanosis Neurological: Normal speech, Normal strength at 5/5 x4 extr, Normal tone, Normal affect - Studies Laboratory Data (last 24 hrs) 09/24/20 12:54: PT 13.2 H, INR 1.15 09/24/20 12:54: WBC 15.40 H, Hgb 13.6, Hct 39.3 L, Plt Count 217 09/24/20 12:54: Sodium 127 L, Potassium 4.2, BUN 17, Creatinine 1.74 H, Glucose 217 H, Magnesium 2.2, Total Bilirubin 1.4 H, AST 23, ALT 56, Alkaline Phosphatase 89, Lipase 124 Assessment and Plan - Plan Impression: Dysuria secondary to UTI with hyponatremia and renal insufficiency Diabetes mellitus type 2 insulin-dependent with hyperglycemia Hypertension Hyperlipidemia Plan: Dysuria secondary to UTI with hyponatremia and renal insufficiency: Patient will be admitted for further evaluation and treatment. Patient appears dehydrated. Continue IV fluids. Patient to get 1 L of normal saline bolus in the emergency room. We will continue with maintenance fluids. Patient started on Rocephin. We will continue with IV Rocephin at this time. Blood, urine cultures obtained. Will monitor closely. Due to his hyponatremia and renal sufficiency will consult nephrology for further recommendation. Anticipate improvement over the next 48 to 72 hours. Diabetes mellitus type 2 insulin-dependent with hyperglycemia: Hold Metformin at this time. Continue Lantus. Sliding scale in place. Will check hemoglobin A1c. Hypertension: Blood pressure stable at this time. Hold blood pressure medication including lisinopril, Norvasc and atenolol. Once blood pressure begins to normalize or increase will restart medication. Hyperlipidemia: Will restart Lipitor. DVT prophylaxis: Lovenox CODE STATUS: Full code Advance care [id number] minutes: Patient wishes to go home at discharge. Discharge Plan: Home Plan to discharge in: Greater than 2 days - Advance Directives Does patient have a Living Will: No Does patient have a Durable POA for Healthcare: No - Code Status/Comfort Care Code Status Assessed: Yes (Patient is full code) Time Spent Managing Pts Care (In Minutes): 55
[2020-09-24] MEDS ORDERED: GLUCAGON 1 MG/VIAL IM PRN (18:18)
[2020-09-24] MEDS ORDERED: HYDROCODONE/APAP 7.5/325 MG TAB PO PRN (18:18)
[2020-09-24] MEDS ORDERED: ACETAMINOPHEN 500 MG TAB PO PRN (18:18)
[2020-09-24] MEDS ORDERED: ONDANSETRON 4 MG/2 ML VIAL IV PRN (18:18)
[2020-09-24] MEDS ORDERED: TRAMADOL HCL 50 MG TAB PO PRN (18:18)
[2020-09-24] MEDS ORDERED: D50W 25 GM/50 ML VIAL IV PRN (18:30)
[2020-09-24 18:36] VITALS: BMI 36.9
[2020-09-24] MEDS: NA CHLORIDE 0.9% 1,000 ML IV SCH (18:39)
[2020-09-24] MEDS ORDERED: INSULIN GLARGINE 100 UNITS/ML SQ SCH (21:00)
[2020-09-24] MEDS: INSULIN -REGULAR HUMAN 50 UNIT/0.5 ML ML SQ SCH (21:00)
[2020-09-24] MEDS: ATORVASTATIN 20 MG TAB PO SCH (21:02)
[2020-09-24 21:49] LABS: Urine Appearance CLEAR (Clear); Urine Bilirubin NEGATIVE (Negative); Urine Blood 3+ (Negative); Urine Color YELLOW (Yellow); Urine Glucose 3+ (Negative); Urine Protein 1+ (Negative); Urine Specific Gravity 1.025 (1.005-1.030); Urine pH 5.5 (5.0-7.0)
[2020-09-24 22:09] LABS: Urine Microscopic Reflex ORDER UMIC
[2020-09-24 22:58] LABS: Urine RBC 20-50 /HPF (NONE SEEN)
[2020-09-24 23:01] LABS: Urine Bacteria <20 /HPF (NONE SEEN)
[2020-09-25] MEDS: NA CHLORIDE 0.9% 1,000 ML IV SCH ×4 (03:16→23:41)
[2020-09-25 06:08] LABS: Absolute Lymphocytes (CBC) 1.1 K/uL (0.7-4.9); Basophils % 0.5 % (0-1.3); Hematocrit 35.6 % (39.6-49.0); Lymphocytes % 9.2 % (15.3-44.8); MPV 7.8 fL (7.6-11.3); RBC Red Blood Cell Count 4.04 M/uL (4.33-5.43)
--- NOTE | 2020-09-25 06:08 | P.PN ---
Subjective Date of Service: 09/25/20 Primary Care Provider: Dr. France Chief Complaint: Pelvic pain, dysuria Physical Examination - Vital Signs Temperature: 97.6 F Blood Pressure: 135/64 Pulse: 72 Respirations: 16 Pulse Ox (%): 92 - Studies Laboratory Data (last 24 hrs) 09/24/20 12:54: PT 13.2 H, INR 1.15 09/24/20 12:54: WBC 15.40 H, Hgb 13.6, Hct 39.3 L, Plt Count 217 09/24/20 12:54: Sodium 127 L, Potassium 4.2, BUN 17, Creatinine 1.74 H, Glucose 217 H, Magnesium 2.2, Total Bilirubin 1.4 H, AST 23, ALT 56, Alkaline Phosphatase 89, Lipase 124 Assessment & Plan Discharge Plan: Home Physician Review Additional Text: CT Scan: FINDINGS: No suspicious findings in the lung bases. The liver, spleen and pancreas show no focal findings on non-contrast imaging. There is pronounced fatty infiltration of the liver with sparing in the caudate lobe and gallbladder fossa region. No gallbladder or biliary tree abnormality. No hydronephrosis or suspicious renal mass. No significant adrenal finding. Isodense renal masses and pyelonephritis cannot be excluded in the absence of IV contrast. Urinary bladder is fully contracted which accentuates the wall thickness. No accurate assessment can be made of cystitis. No stone or asymmetric wall thickening identified. Prostate gland is normal size. No dilated bowel loops or bowel wall thickening. Appendix is normal. No free air, free fluid or inflammatory stranding. No mass or bulky lymphadenopathy. No significant hernia findings. No suspicious bony findings. IMPRESSION: Non-contrast enhanced CT abdomen and pelvis imaging show no significant or suspicious finding. Nonacute findings detailed in the body of the report. Full assessment is limited is the absence of IV contrast. Physical exam: General: Alert, In no apparent distress, Oriented x3, Cooperative HEENT: Atraumatic, Normocephalic, Other (Dry mucous membranes) Neck: Supple Respiratory: Clear to auscultation bilaterally, Normal air movement Cardiovascular: Normal pulses, Regular rate/rhythm Gastrointestinal: Normal bowel sounds, Soft and benign, Non-distended, No masses, No rebound, No guarding, Tenderness (Minimal tenderness to the pelvic bladder region) Musculoskeletal: No erythema, No tenderness, No warmth Integumentary: No tenderness/swelling, No erythema, No warmth, No cyanosis Neurological: Normal speech, Normal strength at 5/5 x4 extr, Normal tone, Normal affect Impression: Dysuria secondary to UTI with hyponatremia and renal insufficiency Diabetes mellitus type 2 insulin-dependent with hyperglycemia Hypertension Hyperlipidemia Plan: Dysuria secondary to UTI with hyponatremia and renal insufficiency: Patient will be admitted for further evaluation and treatment. Patient appears dehydrated. Continue IV fluids. Patient to get 1 L of normal saline bolus in the emergency room. We will continue with maintenance fluids. Patient started on Rocephin. We will continue with IV Rocephin at this time. Blood, urine cultures obtained. Will monitor closely. Due to his hyponatremia and renal sufficiency will consult nephrology for further recommendation. Anticipate improvement over the next 48 to 72 hours. Diabetes mellitus type 2 insulin-dependent with hyperglycemia: Hold Metformin at this time. Continue Lantus. Sliding scale in place. Will check hemoglobin A1c. Hypertension: Blood pressure stable at this time. Hold blood pressure medicat ion including lisinopril, Norvasc and atenolol. Once blood pressure begins to normalize or increase will restart medication. Hyperlipidemia: Will restart Lipitor. DVT prophylaxis: Lovenox CODE STATUS: Full code Advance care minutes: Patient wishes to go home at discharge.
[2020-09-25 06:23] LABS: Magnesium 2.2 mg/dL (1.8-2.4); Potassium 4.1 mmol/L (3.5-5.1); Thyroid Stimulating Hormone 2.49 uIU/mL (0.360-3.740)
[2020-09-25] MEDS: INSULIN -REGULAR HUMAN 50 UNIT/0.5 ML ML SQ SCH ×4 (07:30→21:00)
[2020-09-25] MEDS: THIAMINE HCL 100 MG TABLET PO SCH (08:41)
[2020-09-25] MEDS: AMLODIPINE 5 MG TAB PO SCH (08:41)
[2020-09-25] MEDS: FOLIC ACID 1 MG TABLET PO SCH (08:41)
[2020-09-25] MEDS: CEFTRIAXONE/SWI 1gm 1 GM/10 ML SYR IVP SCH (08:42)
--- NOTE | 2020-09-25 08:48 | P.CNS ---
Date of Consult: 09/25/20 Reason for Consult: ABBIE/ Hyponatremia Requesting Physician: Angel Cruz Primary Care Provider: Dr. Keller Chief Complaint: Pelvic pain, dysuria History of Present Illness: 60-year-old male with history of diabetes mellitus type 2 insulin- dependent, hyperlipidemia, hypertension. Patient presented with pelvic pain, dysuria and poor oral intake. Patient has been working outside. Patient denied any significant fever. Patient reported some difficulty with urinating. Patient reports no history of UTI in the past. There was some question of mild hematuria. Patient came to the ER for further evaluation. 16:08 This 60 yrs old Male presents to ER via Ambulatory with complaints of Pain elise With Urination - Blood. 16:08 The patient presents with abdominal pain in the lower abdomen. Onset: The elise symptoms/episode began/occurred 3 day(s) ago. The patient presents with u rinary symptoms, dysuria, urinary frequency, retention. Onset: The symptoms/episode began/occurred 3 day(s) ago. Modifying factors: The symptoms are alleviated by nothing, the symptoms are aggravated by nothing. Associated signs and symptoms: The patient has no apparent associated signs or symptoms. The symptoms do not radiate. Associated signs and symptoms: Pertinent positives: dysuria. Modifying factors: The symptoms are alleviated by nothing, the symptoms are aggravated by nothing. Severity of pain: At its worst the pain was moderate in the emergency department the pain is unchanged. Allergies No Known Allergies Allergy (Verified 09/24/20 18:18) Home medications list reviewed: Yes Home Medications: Amlodipine [Norvasc*] 1 tab PO DAILY 09/24/20 Atenolol [Tenormin] 1 tab PO DAILY 09/24/20 Atorvastatin Calcium 1 tab PO DAILY 09/24/20 Insulin Degludec [Tresiba Flextouch U-100] 30 units SQ BEDTIME 09/24/20 Lisinopril [Zestril] 1 tab PO DAILY 09/24/20 Metformin ER [Glucophage ER*] 2 tab PO BID 09/24/20 Semaglutide [Ozempic] 0.5 mg SQ Q7D 09/24/20 - Past Medical/Surgical History Diabetic: Yes -: Diabetes mellitus type 2 insulin-dependent -: Hypertension -: Hyperlipidemia Psychosocial/ Personal History: Patient is - Family History Father Medical History: Diabetes Mother Medical History: Kidney disease Sister Medical History: Kidney disease - Social History Alcohol use: No CD- Drugs: No Caffeine use: Yes Place of Residence: Home Review of Systems 10-point ROS is otherwise unremarkable General: Weakness, Malaise Genitourinary: Hematuria Physical Examination Temp Pulse Resp BP Pulse Ox 97.6 F 90 16 138/87 92 09/25/20 06:08 09/25/20 08:41 09/25/20 06:08 09/25/20 08:41 09/25/20 06:08 General: In no apparent distress, Oriented x3, Cooperative HEENT: Atraumatic Neck: Supple Respiratory: Clear to auscultation bilaterally Cardiovascular: Regular rate/rhythm, Edema Gastrointestinal: Soft and benign, Non-distended Musculoskeletal: No clubbing, No contractures Integumentary: No rashes, No cyanosis Neurological: Normal speech Laboratory Data (last 24 hrs) 09/24/20 12:54: PT 13.2 H, INR 1.15 09/24/20 12:54: WBC 15.40 H, Hgb 13.6, Hct 39.3 L, Plt Count 217 09/24/20 12:54: Sodium 127 L, Potassium 4.2, BUN 17, Creatinine 1.74 H, Glucose 217 H, Magnesium 2.2, Total Bilirubin 1.4 H, AST 23, ALT 56, Alkaline Phosphatase 89, Lipase 124 Imagings Data: EXAM DESCRIPTION: CT - Abdomen Pelvis Wo Contrast - 09/24/2020 1:44 pm CLINICAL HISTORY: Abd pain;Flank pain COMPARISON: No comparisons TECHNIQUE: Axial [address] imaging of the abdomen and pelvis was performed without IV contrast. No IV contrast was given because of allergy, abnormal renal function, patient refusal or physician request. No oral contrast administered. All CT scans are performed using dose optimization technique as appropriate and may include automated exposure control or mA/KV adjustment according to patient size. FINDINGS: No suspicious findings in the lung bases. The liver, spleen and pancreas show no focal findings on non-contrast imaging. There is pronounced fatty infiltration of the liver with sparing in the caudate lobe and gallbladder fossa region. No gallbladder or biliary tree abnormality. No hydronephrosis or suspicious renal mass. No significant adrenal finding. Isodense renal masses and pyelonephritis cannot be excluded in the absence of IV contrast. Urinary bladder is fully contracted which accentuates the wall thickness. No accurate assessment can be made of cystitis. No stone or asymmetric wall thickening identified. Prostate gland is normal size. No dilated bowel loops or bowel wall thickening. Appendix is normal. No free air, free fluid or inflammatory stranding. No mass or bulky lymphadenopathy. No significant hernia findings. No suspicious bony findings. IMPRESSION: Non-contrast enhanced CT abdomen and pelvis imaging show no significant or suspicious finding. Nonacute findings detailed in the body of the report. Full assessment is limited is the absence of IV contrast. EXAM DESCRIPTION: RAD - Chest Single View - 09/24/2020 12:47 pm CLINICAL HISTORY: Cough COMPARISON: None. TECHNIQUE: AP portable chest image was obtained . FINDINGS: Lungs are clear. Heart and vasculature are normal. No measurable pleural effusion and no pneumothorax. No gross bony abnormality seen. IMPRESSION: No acute cardiopulmonary process. Conclusions/Impression: ABBIE likely due to hypovolemia Proteinuria -No NSAIDs -Reduce IVF to 75 ml/hr; May be able to discontinue IVF once tolerating PO well Hypovolemic Hyponatremia -Continue IVF -Encourage nutrition Hypocalcemia -Start Vitamin D3 HTN with CKD -Continue Amlodipine DM II with CKD and Hyperglycemia -Incease Lantus 12 units qhs -No sugar diet Anemia in chronic illness -Monitor H&H Acute GNR Cystitis -Follow up culture -Continue Rocephin Thank you kindly for the consultation. Case reviewed with Dr. Cruz.
[2020-09-25] MEDS: VITAMIN D 5,000 UNIT CAP PO SCH (12:21)
--- NOTE | 2020-09-25 12:37 | P.PN ---
Subjective Date of Service: 09/25/20 Primary Care Provider: Dr. Keller Chief Complaint: Pelvic pain, dysuria Subjective: Improving, Doing well Physical Examination - Vital Signs Temperature: 97.9 F Blood Pressure: 138/87 Pulse: 90 Respirations: 32 Pulse Ox (%): 96 - Studies Laboratory Data (last 24 hrs) 09/24/20 12:54: PT 13.2 H, INR 1.15 09/24/20 12:54: WBC 15.40 H, Hgb 13.6, Hct 39.3 L, Plt Count 217 09/24/20 12:54: Sodium 127 L, Potassium 4.2, BUN 17, Creatinine 1.74 H, Glucose 217 H, Magnesium 2.2, Total Bilirubin 1.4 H, AST 23, ALT 56, Alkaline Phosphatase 89, Lipase 124 Assessment & Plan Discharge Plan: Home Plan to discharge in: 24 Hours Physician Review Additional Text: CT Scan: FINDINGS: No suspicious findings in the lung bases. The liver, spleen and pancreas show no focal findings on non-contrast imaging. There is pronounced fatty infiltration of the liver with sparing in the caudate lobe and gallbladder fossa region. No gallbladder or biliary tree abnormality. No hydronephrosis or suspicious renal mass. No significant adrenal finding. Isodense renal masses and pyelonephritis cannot be excluded in the absence of IV contrast. Urinary bladder is fully contracted which accentuates the wall thickness. No accurate assessment can be made of cystitis. No stone or asymmetri c wall thickening identified. Prostate gland is normal size. No dilated bowel loops or bowel wall thickening. Appendix is normal. No free air, free fluid or inflammatory stranding. No mass or bulky lymphadenopathy. No significant hernia findings. No suspicious bony findings. IMPRESSION: Non-contrast enhanced CT abdomen and pelvis imaging show no significant or suspicious finding. Nonacute findings detailed in the body of the report. Full assessment is limited is the absence of IV contrast. Physical exam: General: Alert, In no apparent distress, Oriented x3, Cooperative HEENT: Atraumatic, Normocephalic, Other (Dry mucous membranes) Neck: Supple Respiratory: Clear to auscultation bilaterally, Normal air movement Cardiovascular: Normal pulses, Regular rate/rhythm Gastrointestinal: Normal bowel sounds, Soft and benign, Non-distended, No masses, No rebound, No guarding, Tenderness (Minimal tenderness to the pelvic bladder region) Musculoskeletal: No erythema, No tenderness, No warmth Integumentary: No tenderness/swelling, No erythema, No warmth, No cyanosis Neurological: Normal speech, Normal strength at 5/5 x4 extr, Normal tone, Normal affect Impression: Dysuria secondary to UTI with hyponatremia and renal insufficiency, urine culture shows gram-negative rods Diabetes mellitus type 2 insulin-dependent with hyperglycemia Hypertension Hyperlipidemia Plan: Dysuria secondary to UTI with hyponatremia and renal insufficiency, urine culture shows gram-negative rods: Continue with IV antibiotic therapy. Blood and urine cultures obtained. Urine culture shows gram-negative rods. Continue with IV fluids. Sodium level improved. We will continue to monitor closely. Spoke with nephrology. Continue with nephrology recommendation. Anticipate continued improvement over the next 24 to 48 hours. Diabetes mellitus type 2 insulin-dependent with hyperglycemia: Continue to hold Metformin at this time. Continue Lantus. Sliding scale in place. Hemoglobin A1c 8.1 Hypertension: Blood pressure stable at this time. Hold blood pressure medication including lisinopril, Norvasc and atenolol. Once blood pressure begins to normalize or increase will restart medication. Hyperlipidemia: Continue Lipitor. DVT prophylaxis: Lovenox CODE STATUS: Full code Advance care [id number] minutes: Patient wishes to go home at discharge. Time Spent Managing Pts Care (In Minutes): 55
--- NOTE | 2020-09-25 13:02 | EKG ---
Test Date: 2020-09-24 Test Time: 12:49:27 Kennel Manager: ELENI MEASUREMENT RESULTS: Intervals: Rate: 85 OK: 164 QRSD: 84 QT: 376 QTc: 447 [place]: P: 38 OK: 164 QRS: 56 T: 40 INTERPRETIVE STATEMENTS: Normal sinus rhythm Cannot rule out Anterior infarct, age undetermined Abnormal ECG Compared to ECG 08/08/1998 06:10:00 Myocardial infarct finding now present Early repolarization no longer present Electronically Signed On 09-25-20 12:59:38 CDT by Daniel Urbina
[2020-09-25] MEDS ORDERED: INSULIN GLARGINE 100 UNITS/ML SQ SCH (21:00)
[2020-09-25] MEDS: ENOXAPARIN 40 MG/0.4 ML SQ SCH (21:10)
[2020-09-25] MEDS: ATORVASTATIN 20 MG TAB PO SCH (21:11)
[2020-09-25] MEDS: DOCUSATE NA 100 MG CAP PO SCH (21:11)
[2020-09-26 05:39] LABS: Absolute Lymphocytes (CBC) 1.2 K/uL (0.7-4.9); Basophils % 0.4 % (0-1.3); Hematocrit 36.2 % (39.6-49.0); Lymphocytes % 13.6 % (15.3-44.8); MPV 7.7 fL (7.6-11.3); RBC Red Blood Cell Count 4.15 M/uL (4.33-5.43)
[2020-09-26 05:45] LABS: BUN Blood Urea Nitrogen 9 mg/dL (7-18); Bicarbonate 24 mmol/L (21-32); Glucose Level 156 mg/dL (74-106); Magnesium 1.8 mg/dL (1.8-2.4); Sodium Level 127 mmol/L (136-145)
--- NOTE | 2020-09-26 06:03 | P.PN ---
Subjective Date of Service: 09/26/20 Primary Care Provider: Dr. Keller Chief Complaint: Pelvic pain, dysuria Subjective: Improving, Doing well Physical Examination - Vital Signs Temperature: 97.5 F Blood Pressure: 159/89 Pulse: 103 Respirations: 19 Pulse Ox (%): 99 Assessment & Plan Discharge Plan: Home Plan to discharge in: 24 Hours Physician Review Additional Text: CT Scan: FINDINGS: No suspicious findings in the lung bases. The liver, spleen and pancreas show no focal findings on non-contrast imaging. There is pronounced fatty infiltration of the liver with sparing in the caudate lobe and gallbladder fossa region. No gallbladder or biliary tree abnormality. No hydronephrosis or suspicious renal mass. No significant adrenal finding. Isodense renal masses and pyelonephritis cannot be excluded in the absence of IV contrast. Urinary bladder is fully contracted which accentuates the wall thickness. No accurate assessment can be made of cystitis. No stone or asymmetric wall thickening identified. Prostate gland is normal size. No dilated bowel loops or bowel wall thickening. Appendix is normal. No free air, free fluid or inflammatory stranding. No mass or bulky lymphadenopathy. No significant hernia findings. No suspicious bony findings. IMPRESSION: Non-contrast enhanced CT abdomen and pelvis imaging show no significant or suspicious finding. Nonacute findings detailed in the body of the report. Full assessment is limited is the absence of IV contrast. Physical exam: General: Alert, In no apparent distress, Oriented x3, Cooperative HEENT: Atraumatic, Normocephalic, Other (Dry mucous membranes) Neck: Supple Respiratory: Clear to auscultation bilaterally, Normal air movement Cardiovascular: Normal pulses, Regular rate/rhythm Gastrointestinal: Normal bowel sounds, Soft and benign, Non-distended, No masses, No rebound, No guarding, Tenderness (Minimal tenderness to the pelvic bladder region) Musculoskeletal: No erythema, No tenderness, No warmth Integumentary: No tenderness/swelling, No erythema, No warmth, No cyanosis Neurological: Normal speech, Normal strength at 5/5 x4 extr, Normal tone, Normal affect Impression: Dysuria secondary to UTI with hyponatremia and renal insufficiency, urine culture shows gram-negative rods Diabetes mellitus type 2 insulin-dependent with hyperglycemia Hypertension Hyperlipidemia Plan: Dysuria secondary to UTI with hyponatremia and renal insufficiency, urine culture shows gram-negative rods: Case discussed with nephrology. Urine culture positive for E. coli. We will plan to discharge today. Patient still with hyponatremia likely volume overload. Will provide Lasix. Diabetes mellitus type 2 insulin-dependent with hyperglycemia: Continue to hold Metformin at this time. Continue Lantus. Sliding scale in place. Hemoglobin A1c 8.1 Hypertension: Blood pressure stable at this time. Hold blood pressure medication including lisinopril, Norvasc and atenolol. Once blood pressure begins to normalize or increase will restart medication. Hyperlipidemia: Continue Lipitor. DVT prophylaxis: Lovenox CODE STATUS: Full code Advance care [id number] minutes: Patient wishes to go home at discharge. Time Spent Managing Pts Care (In Minutes): 55
[2020-09-26] MEDS: INSULIN -REGULAR HUMAN 50 UNIT/0.5 ML ML SQ SCH (07:30)
[2020-09-26] MEDS ORDERED: atenoloL 50 MG TAB PO SCH (09:00)
[2020-09-26] MEDS: AMLODIPINE 5 MG TAB PO SCH (09:20)
[2020-09-26] MEDS: VITAMIN D 5,000 UNIT CAP PO SCH (09:21)
[2020-09-26] MEDS: DOCUSATE NA 100 MG CAP PO SCH (09:21)
[2020-09-26] MEDS: ENOXAPARIN 40 MG/0.4 ML SQ SCH (09:21)
[2020-09-26] MEDS: THIAMINE HCL 100 MG TABLET PO SCH (09:21)
[2020-09-26] MEDS: FOLIC ACID 1 MG TABLET PO SCH (09:21)
[2020-09-26] MEDS: CEFTRIAXONE/SWI 1gm 1 GM/10 ML SYR IVP SCH (09:22)
[2020-09-26] MEDS ORDERED: FUROSEMIDE 20 MG TABLET PO SCH (09:30)
--- NOTE | 2020-09-26 09:33 | P.PN ---
Date of Service: 09/26/20 Vital Signs Temp Pulse Resp BP Pulse Ox 98.7 F 95 H 34 H 139/74 95 09/26/20 08:00 09/26/20 09:21 09/26/20 08:00 09/26/20 09:21 09/26/20 08:00 Medications Acetaminophen (Acetaminophen 500 Mg Tab) 500 mg PO Q4HP PRN PRN Reason: TEMP > 101' F Hydrocodone Bitart/Acetaminophen (Hydrocodone/Apap 7.5/325 Mg Tab) 1 tab PO Q6H PRN PRN Reason: Pain scale 5-7 (Moderate) Amlodipine Besylate (Amlodipine 5 Mg Tab) 5 mg PO DAILY [facility] Last Admin: 09/26/20 09:20 Dose: 5 mg Documented by: Atenolol (Atenolol 50 Mg Tab) 100 mg PO DAILY [facility] Last Admin: 09/26/20 09:21 Dose: 100 mg Documented by: Atorvastatin Calcium (Atorvastatin 20 Mg Tab) 20 mg PO BEDTIME [facility] Last Admin: 09/25/20 21:11 Dose: 20 mg Documented by: Cholecalciferol (Vitamin D 5,000 Unit Cap) 5,000 unit PO DAILY [facility] Last Admin: 09/26/20 09:21 Dose: 5,000 unit Documented by: Dextrose (D50w 25 Gm/50 Ml Vial) 12.5 gm IV PRN PRN; Protocol PRN Reason: HYPOGLYCEMIA Docusate Sodium (Docusate Na 100 Mg Cap) 100 mg PO BID [facility] Last Admin: 09/26/20 09:21 Dose: 100 mg Documented by: Enoxaparin Sodium (Enoxaparin 40 Mg/0.4 Ml) 40 mg SQ DAILY [facility] Last Admin: 09/26/20 09:21 Dose: 40 mg Documented by: Folic Acid (Folic Acid 1 Mg Tablet) 1 mg PO DAILY [facility] Last Admin: 09/26/20 09:21 Dose: 1 mg Documented by: Furosemide (Furosemide 20 Mg Tablet) 20 mg PO DAILY [facility] Glucagon (Glucagon 1 Mg/Vial) 1 mg IM 1X PRN; Protocol PRN Reason: HYPOGLYCEMIA Ceftriaxone Sodium/Sodium Chloride (Rocephin 1 Gm/10 Ml Swi Ivp) 1 gm in 10 mls @ 600 mls/hr IVP DAILY [facility]; Protocol Last Admin: 09/26/20 09:22 Dose: 10 mls Documented by: Insulin Glargine (Insulin Glargine 100 Units/Ml) 12 units SQ BEDTIME [facility] Last Admin: 09/25/20 21:11 Dose: 12 units Documented by: Insulin Human Regular (Insulin -Regular Human 50 Unit/0.5 Ml Ml) 0 unit SQ ACHS [facility]; Protocol Last Admin: 09/26/20 07:30 Dose: Not Given Documented by: Ondansetron HCl (Ondansetron 4 Mg/2 Ml Vial) 4 mg IV Q6HP PRN PRN Reason: NAUSEA / VOMITING Sodium Chloride (Flush Normal Saline 10 Ml) 10 ml IV BID [facility] Last Admin: 09/26/20 09:00 Dose: 10 ml Documented by: Thiamine HCl (Thiamine Hcl 100 Mg Tablet) 100 mg PO DAILY [facility] Last Admin: 09/26/20 09:21 Dose: 100 mg Documented by: Tramadol HCl (Tramadol Hcl 50 Mg Tab) 50 mg PO TID PRN PRN Reason: Pain scale 2-4 (Mild) Microbiology Results 09/24/20 12:43 Clean Catch Urine [place] Count - Final >100,000 CFU/ML. 09/24/20 12:43 Clean Catch Urine - Final Escherichia Coli Assessment/ Plan: Nephrology Feeling better today. Denies excessive water intake. Reports a clear urine. CPS stable without CP or SOB. No acute events overnight. Vitals, medications, blood work and imaging reviewed in the chart. General: In no apparent distress, Oriented x3, Cooperative HEENT: Atraumatic Neck: Supple Respiratory: Clear to auscultation bilaterally Cardiovascular: Regular rate/rhythm, Edema Gastrointestinal: Soft and benign, Non-distended Musculoskeletal: No clubbing, No contractures Integumentary: No rashes, No cyanosis Neurological: Normal speech Laboratory Data (last 24 hrs) 09/24/20 12:54: PT 13.2 H, INR 1.15 09/24/20 12:54: WBC 15.40 H, Hgb 13.6, Hct 39.3 L, Plt Count 217 09/24/20 12:54: Sodium 127 L, Potassium 4.2, BUN 17, Creatinine 1.74 H, Glucose 217 H, Magnesium 2.2, Total Bilirubin 1.4 H, AST 23, ALT 56, Alkaline Phosphatase 89, Lipase 124 Imagings Data: EXAM DESCRIPTION: CT - Abdomen Pelvis Wo Contrast - 09/24/2020 1:44 pm CLINICAL HISTORY: Abd pain;Flank pain COMPARISON: No comparisons TECHNIQUE: Axial [address] imaging of the abdomen and pelvis was performed without IV contrast. No IV contrast was given because of allergy, abnormal renal function, patient refusal or physician request. No oral contrast administered. All CT scans are performed using dose optimization technique as appropriate and may include automated exposure control or mA/KV adjustment according to patient size. FINDINGS: No suspicious findings in the lung bases. The liver, spleen and pancreas show no focal findings on non-contrast imaging. There is pronounced fatty infiltration of the liver with sparing in the caudate lobe and gallbladder fossa region. No gallbladder or biliary tree abnormality. No hydronephrosis or suspicious renal mass. No significant adrenal finding. Isodense renal masses and pyelonephritis cannot be excluded in the absence of IV contrast. Urinary bladder is fully contracted which accentuates the wall thickness. No accurate assessment can be made of cystitis. No stone or asymmetric wall thickening identified. Prostate gland is normal size. No dilated bowel loops or bowel wall thickening. Appendix is normal. No free air, free fluid or inflammatory stranding. No mass or bulky lymphadenopathy. No significant hernia findings. No suspicious bony findings. IMPRESSION: Non-contrast enhanced CT abdomen and pelvis imaging show no significant or suspicious finding. Nonacute findings detailed in the body of the report. Full assessment is limited is the absence of IV contrast. EXAM DESCRIPTION: RAD - Chest Single View - 09/24/2020 12:47 pm CLINICAL HISTORY: Cough COMPARISON: None. TECHNIQUE: AP portable chest image was obtained . FINDINGS: Lungs are clear. Heart and vasculature are normal. No measurable pleural effusion and no pneumothorax. No gross bony abnormality seen. IMPRESSION: No acute cardiopulmonary process. Conclusions/Impression: ABBIE likely due to hypovolemia, resolved Proteinuria -No NSAIDs Hypovolemic Hyponatremia -Start Lasix 20mg daily for trace edema. -Send urine studies -Encourage nutrition -Advised against excess water intake Hypocalcemia -Continue Vitamin D3 -Calcitriol X1 dose today HTN with CKD -Continue Amlodipine DM II with CKD and Hyperglycemia -Increase Lantus 14 units qhs -No sugar diet Anemia in chronic illness -Monitor H&H Acute E.coli Cystitis -Continue Rocephin
[2020-09-26 10:02] VITALS: TEMP 97.5
[2020-09-26 10:14] LABS: Urine Appearance CLEAR (Clear); Urine Bilirubin NEGATIVE (Negative); Urine Blood NEGATIVE (Negative); Urine Color YELLOW (Yellow); Urine Glucose 3+ (Negative); Urine Protein NEGATIVE (Negative); Urine Specific Gravity 1.025 (1.005-1.030)
--- NOTE | 2020-09-26 10:14 | P.DS ---
Admission Date: 09/24/20 Discharge Date: 09/26/20 Primary Care Provider: Dr. Keller Disposition: ROUTINE DISCHARGE Discharge Condition: GOOD Reason for Admission: Pelvic pain, dysuria Consultations: Nephrology-Dr. Merrill Procedures: CT Scan: FINDINGS: No suspicious findings in the lung bases. The liver, spleen and pancreas show no focal findings on non-contrast imaging. There is pronounced fatty infiltration of the liver with sparing in the caudate lobe and gallbladder fossa region. No gallbladder or biliary tree abnormality. No hydronephrosis or suspicious renal mass. No significant adrenal finding. Isodense renal masses and pyelonephritis cannot be excluded in the absence of IV contrast. Urinary bladder is fully contracted which accentuates the wall thickness. No accurate assessment can be made of cystitis. No stone or asymmetric wall thickening identified. Prostate gland is normal size. No dilated bowel loops or bowel wall thickening. Appendix is normal. No free air, free fluid or inflammatory stranding. No mass or bulky lymphadenopathy. No significant hernia findings. No suspicious bony findings. IMPRESSION: Non-contrast enhanced CT abdomen and pelvis imaging show no significant or suspicious finding. Nonacute findings detailed in the body of the report. Full assessment is limited is the absence of IV contrast. Impression: Dysuria secondary to UTI with hyponatremia and renal insufficiency, urine culture positive for E. coli Diabetes mellitus type 2 insulin-dependent with hyperglycemia Hypertension Hyperlipidemia Brief History of Present Illness: 60-year-old male with history of diabetes mellitus type 2 insulin- dependent, hyperlipidemia, hypertension. Patient presented with pelvic pain, dysuria and poor oral intake. Patient has been working outside. Patient denied any significant fever. Patient reported some difficulty with urinating. Patient reports no history of UTI in the past. There was some question of mild hematuria. Patient came to the ER for further evaluation. In the ER patient was evaluated. UTI identified. White count 15.4, hemoglobin 13.6. Sodium 127, potassium 4.2. BUN of 17, creatinine 1.74 with a GFR 40. Glucose of 217. CT scan unremarkable. Chest x-ray unremarkable. Patient started on IV antibiotic therapy. Patient given IV fluids. Patient admitted for further evaluation and treatment. Hospital Course: Patient presented with dysuria secondary to UTI. Patient also had renal insufficiency and hyponatremia. Patient was admitted for treatment. Patient required IV antibiotic therapy and IV fluids. Nephrology was also consulted to help assist. During the course of his stay his condition improved. Urine culture was positive for E. coli. Ortez sensitivity noted. At discharge patient without significant pain, nausea or vomiting. CT scan unremarkable. At discharge the patient will continue with Bactrim DS 1 pill twice daily for 5 more days to complete treatment. UTI prevention provided. Education on UTI will also be provided. Recommend follow-up with PCP in 1 week to follow-up hospitalization. Recommend to establish care with urology as an outpatient to further evaluate. Patient with mild hyponatremia. Nephrology was consulted. Patient had some edema to the lower extremities. This may be from receiving IV fluids. Oral intake also noted to be high. Nephrology recommended to continue with Lasix 20 mg daily at discharge. Recommend to recheck labBMP in 1 week to monitor his progress. Further adjustment can be done by his PCP or nephrology. Recommend follow-up with nephrology in 1 week to further monitor his sodium level. Patient with diabetes mellitus type 2. Patient insulin-dependent. Hyperglycemia noted. Hemoglobin A1c 8.1. Overall stable at this time. At discharge patient will continue with his current medications of Tresiba 30 units subcu at bedtime, Glucophage 500 mg 2 pills twice daily and Ozempic as directed. Recommend to maintain blood sugars less than 140 fasting and less than 200 for meals. If blood sugars remain above 200 may need to increase Tresiba. This can be done with the help of his PCP. Recommend to recheck hemoglobin A1c every 3 months to monitor his progress. Recommend follow-up with PCP within 1 week to further address his condition. Patient with hyperlipidemia. Medications were held during his stay due to his UTI and low blood pressure. Medications were adjusted during the course of his stay. At discharge patient will continue with Norvasc 10 mg daily and atenolol 100 mg daily. Lisinopril 40 mg daily held at this time. Note that the patient will continue with Lasix 20 mg daily. Recommend to monitor his blood pressures daily. Recommend to maintain his blood pressure less than 130/80. Further adjustment can be done by his PCP. If blood pressures remain above 140/90 then lisinopril may need to be restarted. This can be done with the help of his PCP. Recommend follow-up with PCP within 1 week to further address. Patient with hyperlipidemia. At discharge patient will continue with Lipitor 20 mg daily. Vital Signs/Physical Exam: Temp Pulse Resp BP Pulse Ox 97.5 F 103 H 19 159/89 H 99 09/26/20 10:02 09/26/20 10:02 09/26/20 10:02 09/26/20 10:02 09/26/20 10:02 General: Alert, In no apparent distress, Oriented x3, Cooperative HEENT: Atraumatic, Mucous membr. moist/pink Neck: Supple Respiratory: Clear to auscultation bilaterally, Normal air movement Cardiovascular: Normal pulses, Regular rate/rhythm Gastrointestinal: Normal bowel sounds, Soft and benign, Non-distended, No tenderness, No masses, No rebound, No guarding Musculoskeletal: No tenderness, No warmth Integumentary: Tenderness/swelling (Minimal edema to the lower extremity) Neurological: Normal speech, Normal strength at 5/5 x4 extr, Normal tone, Normal affect Laboratory Data at Discharge: WBC 8.60 K/uL (4.3-10.9) D 09/26/20 05:04 Hgb 12.9 g/dL (13.6-17.9) L 09/26/20 05:04 Hct 36.2 % (39.6-49.0) L 09/26/20 05:04 Plt Count 213 K/uL (152-406) 09/26/20 05:04 PT 13.2 SECONDS (9.5-12.5) H 09/24/20 12:54 INR 1.15 09/24/20 12:54 Sodium 127 mmol/L (136-145) L 09/26/20 05:04 Potassium 4.0 mmol/L (3.5-5.1) 09/26/20 05:04 BUN 9 mg/dL (7-18) 09/26/20 05:04 Creatinine 0.72 mg/dL (0.55-1.3) 09/26/20 05:04 Glucose 156 mg/dL (74-106) H 09/26/20 05:04 Magnesium 1.8 mg/dL (1.8-2.4) 09/26/20 05:04 Total Bilirubin 1.4 mg/dL (0.2-1.0) H 09/24/20 12:54 AST 23 U/L (15-37) 09/24/20 12:54 ALT 56 U/L (12-78) 09/24/20 12:54 Alkaline Phosphatase 89 U/L (45-117) 09/24/20 12:54 Lipase 124 U/L (73-393) 09/24/20 12:54 Home Medications: Amlodipine [Norvasc*] 1 tab PO DAILY 09/24/20 Atenolol [Tenormin] 1 tab PO DAILY 09/24/20 Atorvastatin Calcium 1 tab PO DAILY 09/24/20 Insulin Degludec [Tresiba Flextouch U-100] 30 units SQ BEDTIME 09/24/20 Metformin ER [Glucophage ER*] 2 tab PO BID 09/24/20 Semaglutide [Ozempic] 0.5 mg SQ Q7D 09/24/20 Furosemide [Lasix*] 20 mg PO DAILY #30 tab 09/26/20 Sulfamethoxazole/Trimethoprim [Bactrim Ds Tablet] 1 each PO BID #10 tablet 09/26/20 New Medications: Sulfamethoxazole/Trimethoprim [Bactrim Ds Tablet] 1 each PO BID #10 tablet Furosemide [Lasix*] 20 mg PO DAILY #30 tab Physician Discharge Instructions: Patient presented with dysuria secondary to UTI. Patient also had renal insufficiency and hyponatremia. Patient was admitted for treatment. Patient required IV antibiotic therapy and IV fluids. Nephrology was also consulted to help assist. During the course of his stay his condition improved. Urine culture was positive for E. coli. Ortez sensitivity noted. At discharge patient without significant pain, nausea or vomiting. CT scan unremarkable. At discharge the patient will continue with Bactrim DS 1 pill twice daily for 5 more days to complete treatment. UTI prevention provided. Education on UTI will also be provided. Recommend follow-up with PCP in 1 week to follow-up hospitalization. Recommend to establish care with urology as an outpatient to further evaluate. Patient with mild hyponatremia. Nephrology was consulted. Patient had some edema to the lower extremities. This may be from receiving IV fluids. Oral intake also noted to be high. Nephrology recommended to continue with Lasix 20 mg daily at discharge. Recommend to recheck labBMP in 1 week to monitor his progress. Further adjustment can be done by his PCP or nephrology. Recommend follow-up with nephrology in 1 week to further monitor his sodium level. Patient with diabetes mellitus type 2. Patient insulin-dependent. Hyperglycemia noted. Hemoglobin A1c 8.1. Overall stable at this time. At discharge patient will continue with his current medications of Tresiba 30 units subcu at bedtime, Glucophage 500 mg 2 pills twice daily and Ozempic as directed. Recommend to maintain blood sugars less than 140 fasting and less than 200 for meals. If blood sugars remain above 200 may need to increase Tresiba. This can be done with the help of his PCP. Recommend to recheck hemoglobin A1c every 3 months to monitor his progress. Recommend follow-up with PCP within 1 week to further address his condition. Patient with hyperlipidemia. Medications were held during his stay due to his UTI and low blood pressure. Medications were adjusted during the course of his stay. At discharge patient will continue with Norvasc 10 mg daily and atenolol 100 mg daily. Lisinopril 40 mg daily held at this time. Note that the patient will continue with Lasix 20 mg daily. Recommend to monitor his blood pressures daily. Recommend to maintain his blood pressure less than 130/80. Further adjustment can be done by his PCP. If blood pressures remain above 140/90 then lisinopril may need to be restarted. This can be done with the help of his PCP. Recommend follow-up with PCP within 1 week to further address. Patient with hyperlipidemia. At discharge patient will continue with Lipitor 20 mg daily. Diet: ADA Activity: Ad guanakito Followup: Myke Keller MD [Primary Care Provider] - Time spent managing pt's care (in minutes): 55
[2020-09-26 10:21] VITALS: O2SAT 96
[2020-09-26 10:45] LABS: Urine Bacteria NONE SEEN /HPF (NONE SEEN); Urine RBC NONE SEEN /HPF (NONE SEEN)
[2020-09-26 10:51] VITALS: BP 139/74
[2020-09-26] MEDS ORDERED: INSULIN GLARGINE 100 UNITS/ML SQ SCH (21:00)
[2020-09-27] MEDS ORDERED: CALCITROL 0.25 MCG CAP PO ONE (10:00)
== END 2020-09-26 10:59 | disposition home or self-care (01) | DRG 690 ==
LOC: ER 11:33 → ERHOLD 16:53 → 2ND 17:46
PROVIDERS: ADMIT Family Medicine; ATTEND Family Medicine
DX: N39.0 Urinary tract infection, site not specified (principal); E87.1 Hypo-osmolality and hyponatremia; B96.20 Unspecified Escherichia coli [E. coli] as the cause of diseases classified elsewhere; E11.65 Type 2 diabetes mellitus with hyperglycemia; E78.5 Hyperlipidemia, unspecified; I10 Essential (primary) hypertension; N28.9 Disorder of kidney and ureter, unspecified; E83.51 Hypocalcemia
CPT/HCPCS: 36415; 71045; 74176; 80048; 80076; 81001; 81003; 81015; 82570; 82947; 83036; 83605; 83690; 83735; 83880; 83935; 84132; 84145; 84300; 84439; 84443; 84484; 85025; 85610; 87040; 87077; 87086; 87088; 87186; 93005; 96365; 99285; J0696; J1650; J1815; J7030